=== PATIENT | male | born 1960 | race Caucasian/White ===

== ENCOUNTER 2023-08-05 14:34 | Emergency (ER) | payer BC, OTHER ==
[~2023-08-05] VITALS: Ht 185.4 cm; Wt 99.9 kg
[~2023-08-05 14:34] MED LIST: HYDR-4353 PO
[2023-08-05 14:40] VITALS: BP 116/91; PULSE 93; TEMP 97.8; O2SAT 97
[2023-08-05] MEDS ORDERED: ketorolac trometh inj. 60 MG/2 ML VIAL IM ONE (17:00)
[2023-08-05] MEDS ORDERED: diazepam inj 5 MG/ML inj. IM ONE (17:00)
[2023-08-05] MEDS ORDERED: CYCL-1 PO (17:02)
[2023-08-05] MEDS ORDERED: NAPR-56 PO (17:02)
[2023-08-05 17:13] VITALS: RESP 18
== END 2023-08-05 17:19 | disposition home or self-care (01) ==
LOC: ER 14:35
DX: S13.4XXA Sprain of ligaments of cervical spine, initial encounter (principal); Z72.89 Other problems related to lifestyle; Z79.899 Other long term (current) drug therapy; W22.8XXA Striking against or struck by other objects, initial encounter; Y93.89 Activity, other specified; Y92.89 Other specified places as the place of occurrence of the external cause; Y99.8 Other external cause status
CPT/HCPCS: 96372; 99284; J1885; J3360

== ENCOUNTER 2024-02-18 12:54 | Inpatient (IN) | payer OTHER ==
[2024-02-18] VITALS (7 sets, daily range): BP systolic 144–171; BP diastolic 58–82; PULSE 51–72; RESP 12–17; O2SAT 97–99
[~2024-02-18] VITALS: Ht 185.4 cm; Wt 97.0 kg
[~2024-02-18 12:54] MED LIST changes: +CYCL-1 PO
[2024-02-18] MEDS ORDERED: iohexol 350MG/ML 100ml bottle IV ONE (13:04)
[2024-02-18 13:28] LABS: BASOPHILS % (AUTO) 0.5 % (0-1); EOSINOPHILS # (AUTO) 0.1 X10'3 (0-0.9); HEMATOCRIT 43.7 % (42.0-52.0); HEMOGLOBIN 14.5 g/dl (14.0-17.9); LYMPHOCYTES # (AUTO) 1.9 X10'3 (1.1-4.8); LYMPHOCYTES % (AUTO) 34.2 % (21-51); MEAN CORPUSCULAR HEMOGLOBIN 32.4 PG (27.0-31.0); MEAN CORPUSCULAR HGB CONC 33.1 g/dL (33.0-36.5); MEAN CORPUSCULAR VOLUME 97.7 FL (78-98); MEAN PLATELET VOLUME 7.4 FL (7.4-10.4); MONOCYTES # (AUTO) 0.5 X10'3 (0-0.9); MONOCYTES % (AUTO) 8.9 % (2-12); NEUTROPHILS # (AUTO) 3.1 X10'3 (1.8-7.7); NEUTROPHILS % (AUTO) 55.4 % (42-75); PLATELET COUNT 233 X10'3 (140-440); RED BLOOD COUNT 4.48 X10'6 (4.70-6.10); RED CELL DISTRIBUTION WIDTH 14.1 % (11.5-14.5); WHITE BLOOD COUNT 5.5 X10'3 (4.5-11.0)
[2024-02-18 13:33] LABS: ALBUMIN 3.7 G/DL (3.4-5.0); ANION GAP 12 (8-16); BLOOD UREA NITROGEN 9 MG/DL (7-18); BUN/CREATININE RATIO 12.7 (10.0-20.0); CALCIUM 9.2 MG/DL (8.5-10.1); CHLORIDE 100 MMOL/L (99-107); CREATININE 0.71 MG/DL (0.60-1.10); GLUCOSE 122 MG/DL (70-104); POTASSIUM 3.9 MMOL/L (3.5-5.1); SODIUM 137 MMOL/L (135-145); TOTAL CARBON DIOXIDE 25.3 MMOL/L (24-32); eGFR > 90 ML/MIN
[2024-02-18 13:37] LABS: APTT 24 SECONDS (22-32); PROTHROMBIN TIME 10.6 SECONDS (9.0-12.0)
[2024-02-18] MEDS: tenecteplase-TNKase inj 10 ML IV ONE (13:37)
[2024-02-18] MEDS ORDERED: magnesium hydroxide 30ml (MOM) UD suspension PO PRN (14:10)
[2024-02-18] MEDS ORDERED: morphine 2 MG/ML inj. syringe IV PRN (14:10)
[2024-02-18] MEDS ORDERED: ondansetron/PF 4mg/2ml inj IV PRN (14:10)
[2024-02-18] MEDS ORDERED: acetaminophen 325mg tablet PO PRN ×2 (14:10)
[2024-02-18] MEDS ORDERED: morphine 4 MG/ML inj SYRINge IV PRN (14:10)
[2024-02-18 14:38] LABS: BILIRUBIN,URINE NEGATIVE (Neg); CLARITY,URINE CLEAR (Clear); COLOR,URINE STRAW (Yellow); GLUCOSE, URINE NEGATIVE (Neg); KETONES,URINE NEGATIVE (Neg); LEUKOCYTE ESTERASE ,URINE NEGATIVE (Neg); NITRITES, URINE NEGATIVE (Neg); OCCULT BLOOD,URINE NEGATIVE (Neg); PH,URINE 5.5 (4.8-8.0); PROTEIN,URINE NEGATIVE (Neg); UROBILINOGEN,URINE 0.2 E.U/dL (0.2-1.0)
[2024-02-18 14:42] LABS: UA COLLECTION TYPE URINAL
[2024-02-18] MEDS ORDERED: ACET-3209 PO (14:54)
[2024-02-18] MEDS ORDERED: IBUP-1594 PO (14:54)
[2024-02-18] MEDS: normal saline 1000ml 1,000 ML IV SCH (16:01)
[2024-02-18] MEDS: docusate sod 100mg capsule PO SCH (20:57)
[2024-02-18] MEDS: famotidine/PF 10 mg/ml inj IV SCH (20:57)
[2024-02-19] VITALS (24 sets, daily range): BP systolic 132–188; BP diastolic 48–94; PULSE 59–117; RESP 12–25; TEMP 97.8–98.3; O2SAT 94–99
[2024-02-19 06:04] LABS: BASOPHILS % (AUTO) 0.5 % (0-1); EOSINOPHILS % (AUTO) 0.7 % (0-6); HEMATOCRIT 42.3 % (42.0-52.0); HEMOGLOBIN 14.3 g/dl (14.0-17.9); LYMPHOCYTES # (AUTO) 1.2 X10'3 (1.1-4.8); LYMPHOCYTES % (AUTO) 21.3 % (21-51); MEAN CORPUSCULAR HEMOGLOBIN 32.6 PG (27.0-31.0); MEAN CORPUSCULAR HGB CONC 33.7 g/dL (33.0-36.5); MEAN CORPUSCULAR VOLUME 96.6 FL (78-98); MEAN PLATELET VOLUME 7.4 FL (7.4-10.4); MONOCYTES # (AUTO) 0.4 X10'3 (0-0.9); MONOCYTES % (AUTO) 7.1 % (2-12); NEUTROPHILS # (AUTO) 3.8 X10'3 (1.8-7.7); NEUTROPHILS % (AUTO) 70.4 % (42-75); PLATELET COUNT 204 X10'3 (140-440); RED BLOOD COUNT 4.38 X10'6 (4.70-6.10); RED CELL DISTRIBUTION WIDTH 13.6 % (11.5-14.5); WHITE BLOOD COUNT 5.4 X10'3 (4.5-11.0)
[2024-02-19 06:29] LABS: ALANINE AMINOTRANSFERASE 48 U/L (12-78); ALBUMIN 3.4 G/DL (3.4-5.0); ALBUMIN/GLOBULIN RATIO 0.9 (1.1-1.5); ALKALINE PHOSPHATASE 61 IU/L (46-116); ANION GAP 10 (8-16); ASPARTATE AMINO TRANSFERASE 46 U/L (10-37); BILIRUBIN,TOTAL 0.6 MG/DL (0.1-1.0); BLOOD UREA NITROGEN 7 MG/DL (7-18); BUN/CREATININE RATIO 9.1 (10.0-20.0); CALCIUM 8.6 MG/DL (8.5-10.1); CHLORIDE 104 MMOL/L (99-107); CREATININE 0.77 MG/DL (0.60-1.10); GLUCOSE 84 MG/DL (70-104); MAGNESIUM 2.1 MG/DL (1.5-2.4); PHOSPHORUS 3.2 MG/DL (2.3-4.5); POTASSIUM 4.1 MMOL/L (3.5-5.1); SODIUM 138 MMOL/L (135-145); TOTAL CARBON DIOXIDE 24.5 MMOL/L (24-32); TOTAL PROTEIN 7.1 G/DL (6.4-8.2); eCRCL 114 ML/MIN; eGFR > 90 ML/MIN
[2024-02-19 06:53] LABS: APTT 26 SECONDS (22-32); FIBRINOGEN 204 MG/DL (177-424); INR 1.1 INR; PROTHROMBIN TIME 11.2 SECONDS (9.0-12.0)
[2024-02-19] MEDS: nicotine 21mg patch - 24 hr TD SCH (07:15)
[2024-02-19 09:34] LABS: CHOL/HDL RATIO 2.1 (0.00-4.99); CHOLESTEROL 181 MG/DL (0-200); HDL CHOLESTEROL 86 MG/DL (35-60); LDL CHOLESTEROL 60 MG/DL (50-100); TRIGLYCERIDES 198 MG/DL (20-135)
[2024-02-19] MEDS ORDERED: NO HOME MEDS (11:26)
[2024-02-19] MEDS: labetalol 100mg tablet PO SCH (12:44)
[2024-02-19] MEDS: atorvastatin 20mg tablet PO SCH (12:44)
[2024-02-19] MEDS: aspirin 81mg, enteric-coated 1 TAB TABLET.DR PO SCH (17:57)
[2024-02-20 01:45] VITALS: BP 141/68; PULSE 64; RESP 16; TEMP 98.5; O2SAT 98
[2024-02-20 06:00] VITALS: BP 147/54; PULSE 58; RESP 16; TEMP 97.6; O2SAT 96
[2024-02-20] MEDS: multivitamins, therapeutics tablet PO SCH (07:28)
[2024-02-20] MEDS: thiamine 100mg tablet PO SCH (07:28)
[2024-02-20] MEDS: folic acid 1mg tablet PO SCH (07:29)
[2024-02-20 11:00] VITALS: BP 146/93; PULSE 54; RESP 16; TEMP 98.4; O2SAT 96
[2024-02-20] MEDS ORDERED: ATOR20TA66 PO (11:28)
[2024-02-20] MEDS ORDERED: FOLI1TAB27 PO (11:28)
[2024-02-20] MEDS ORDERED: ASPI-1071 PO (11:28)
[2024-02-20] MEDS ORDERED: METO-395 PO (11:28)
[2024-02-20] MEDS ORDERED: thiamine tablet PO (11:28)
[2024-02-20 12:15] VITALS: BP 165/79
[2024-02-20] MEDS ORDERED: clopidogrel 75mg tablet PO SCH (15:30)
[2024-02-20] MEDS ORDERED: aspirin 81mg, enteric-coated 1 TAB TABLET.DR PO SCH (15:30)
== END 2024-02-20 13:17 | disposition home or self-care (01) | DRG 93 ==
LOC: ER 12:55 → ED HOLD 14:14 → EDBEDREQTM 18:20 → CICU 2S 19:12 → ORTHO 4S 02-19 19:04
PROVIDERS: ADMIT Internal Medicine Critical Care Medicine; ATTEND Internal Medicine Critical Care Medicine
PROC: B3251ZZ Computerized Tomography (CT Scan) of Bilateral Common Carotid Arteries using Low Osmolar Contrast (ICD-10-PCS; principal; 2024-02-18)
PROC: B32G1ZZ Computerized Tomography (CT Scan) of Bilateral Vertebral Arteries using Low Osmolar Contrast (ICD-10-PCS; 2024-02-18)
PROC: B32R1ZZ Computerized Tomography (CT Scan) of Intracranial Arteries using Low Osmolar Contrast (ICD-10-PCS; 2024-02-18)
PROC: B3281ZZ Computerized Tomography (CT Scan) of Bilateral Internal Carotid Arteries using Low Osmolar Contrast (ICD-10-PCS; 2024-02-18)
PROC: 3E03317 Introduction of Other Thrombolytic into Peripheral Vein, Percutaneous Approach (ICD-10-PCS; 2024-02-18)
DX: R47.1 Dysarthria and anarthria (principal); F10.10 Alcohol abuse, uncomplicated; R47.01 Aphasia; G89.29 Other chronic pain; R47.81 Slurred speech; I10 Essential (primary) hypertension; Y90.9 Presence of alcohol in blood, level not specified; Z72.0 Tobacco use; Z90.49 Acquired absence of other specified parts of digestive tract; Z71.6 Tobacco abuse counseling
CPT/HCPCS: 36415; 70450; 70496; 70498; 70544; 70547; 70551; 71045; 80048; 80053; 80061; 81003; 82948; 83735; 84100; 84484; 85025; 85384; 85610; 85730; 86885; 86900; 86901; 87081; 92508; 92616; 93005; 93306; 97161; 97530; 99285; A6250; A6258; A6449; G0378; J3101; J3490; J7030; Q9967